=== PATIENT | male | born 1945 | race Asian ===

== ENCOUNTER 2019-06-08 10:03 | Emergency (ER) | payer OTHER, SELFPAY ==
[~2019-06-08] VITALS: Ht 170.2 cm; Wt 63.6 kg
[~2019-06-08 10:03] MED LIST: ASPI81TA40 PO; GEMF600T5 PO; GLIP5 PO; LISI-660 PO; METF-960 PO; PRAV10TA39 PO
[2019-06-08] MEDS ORDERED: SODIUM CHLORIDE 0.9% 1,000 ML IV ONE ×2 (10:15→11:00)
[2019-06-08 10:28] LABS: BASOPHILS % (AUTO) 0.5 % (0.0-2.0); EOSINOPHILS % (AUTO) 3.5 % (1.0-6.0); HEMATOCRIT 40.7 % (41-53); HEMOGLOBIN 13.9 g/dL (13.5-17.5); LYMPHOCYTES # (AUTO) 0.8 K/uL (1.0-4.8); LYMPHOCYTES % (AUTO) 12.8 % (22.0-44.0); MEAN CORPUSCULAR HEMOGLOBIN 30.5 pg (26.0-34.0); MEAN CORPUSCULAR HGB CONC 34.1 G/dL (31.0-37.0); MEAN CORPUSCULAR VOLUME 89 fL (80-100); MONOCYTES # (AUTO) 0.3 K/uL (0.1-1.0); MONOCYTES % (AUTO) 4.8 % (2.0-9.0); NEUTROPHILS % (AUTO) 78.4 % (40.0-70.0); PLATELET COUNT (AUTO) 221 K/uL (150-450); RED BLOOD CELL COUNT(AUTO) 4.55 MIL/uL (4.50-5.90); RED CELL DISTRIBUTION WIDTH 13.7 % (11.5-14.5)
[2019-06-08 10:45] LABS: APPEARANCE,URINE CLEAR (CLEAR); BILIRUBIN,URINE NEGATIVE (NEGATIVE); GLUCOSE, URINE (UA) >=1000 mg/dL (NEGATIVE); KETONES,URINE NEGATIVE (NEGATIVE); LEUKOCYTE ESTERASE ,URINE NEGATIVE (NEGATIVE); NITRATE,URINE NEGATIVE (NEGATIVE); OCCULT BLOOD,URINE NEGATIVE (NEGATIVE); PROTEIN,URINE NEGATIVE (NEGATIVE); UROBILINOGEN,URINE 0.2 mg/dL (<=1.0)
[2019-06-08 10:48] LABS: ALANINE AMINOTRANSFERASE 67 U/L (12-78); ALKALINE PHOSPHATASE 97 U/L (46-116); ANION GAP 11 mmol/L (8-16); ASPARTATE AMINOTRANSFERASE 27 U/L (15-37); BILIRUBIN,TOTAL 0.5 mg/dL (0.1-1.0); CALCIUM, TOTAL 9.4 mg/dL (8.8-10.5); CARBON DIOXIDE 27 mmol/L (22-29); CHLORIDE 96 mmol/L (98-107); CREATININE 1.25 mg/dL (0.60-1.30); GLOMERULAR FILTR. RATE CALC 56 mL/min (>60); POTASSIUM 4.3 mmol/L (3.5-5.1); SODIUM SERUM 134 mmol/L (136-145); TOTAL PROTEIN, SERUM 7.8 g/dL (6.4-8.2); UREA NITROGEN, BLOOD 14 mg/dL (7-18)
[2019-06-08 10:49] LABS: ACETONE,BLOOD NEGATIVE (NEGATIVE); GLUCOSE,RANDOM 450 mg/dL (70-110)
[2019-06-08 10:54] LABS: BACTERIA,URINE None Seen /HPF (None Seen); RBC,URINE None Seen /HPF (0-2); SQUAMOUS EPITHELIAL CELL,UR None Seen /LPF (None Seen); WBC,URINE None Seen /HPF (0-5)
[2019-06-08 12:50] VITALS: BP 182/96
[2019-06-08 13:06] LABS: GLUCOSE,POINT OF CARE 302 MG/DL (70-110)
== END 2019-06-08 13:21 | disposition home or self-care (01) ==
LOC: EMS 10:04
DX: E11.65 Type 2 diabetes mellitus with hyperglycemia (principal); Z79.4 Long term (current) use of insulin; Z79.82 Long term (current) use of aspirin; Z79.84 Long term (current) use of oral hypoglycemic drugs; Z79.899 Other long term (current) drug therapy
CPT/HCPCS: 36415; 80053; 81001; 82009; 82962; 85025; 96360; 96361; 99283; J7030

== ENCOUNTER 2024-06-19 01:53 | Emergency (ER) | payer MEDICARE, OTHER ==
[~2024-06-19] VITALS: Ht 152.4 cm; Wt 59.0 kg
[~2024-06-19 01:53] MED LIST changes: +GEMF-77 PO; -GEMF600T5 PO; -GLIP5 PO; +GLIP5TAB16 PO; -LISI-660 PO; +LISI-892 PO; +METF-1211 PO; -METF-960 PO
[2024-06-19 02:15] VITALS: TEMP 97.8
[2024-06-19] MEDS ORDERED: FINA-27 PO (02:31)
[2024-06-19] MEDS ORDERED: EMPA25TA3 PO (02:31)
[2024-06-19] MEDS ORDERED: INSLAN SQ (02:31)
[2024-06-19] MEDS ORDERED: POLY17PO47 PO (02:31)
[2024-06-19] MEDS ORDERED: MULT9LIQ7 PO (02:31)
[2024-06-19] MEDS ORDERED: METO25 PO (02:31)
[2024-06-19] MEDS ORDERED: TAMS0.4C94 PO (02:31)
[2024-06-19] MEDS ORDERED: ROSU20TA98 PO (02:31)
[2024-06-19] MEDS ORDERED: QUET100T PO (02:31)
[2024-06-19] MEDS ORDERED: MELA5TAB40 PO (02:31)
[2024-06-19] MEDS ORDERED: INSU100V SQ (02:31)
[2024-06-19] MEDS ORDERED: PANT-31 PO (02:31)
[2024-06-19] MEDS ORDERED: QUET200T PO (02:31)
[2024-06-19 02:32] LABS: COVID AG,FIA SOURCE NASAL SWAB
[2024-06-19 02:36] LABS: BASOPHILS % (AUTO) 0.4 % (0.0-2.0); EOSINOPHILS % (AUTO) 2.8 % (1.0-6.0); HEMOGLOBIN 9.3 g/dL (13.5-17.5); LYMPHOCYTES # (AUTO) 0.7 K/uL (1.0-4.8); LYMPHOCYTES % (AUTO) 10.7 % (22.0-44.0); MEAN CORPUSCULAR HEMOGLOBIN 29.4 pg (26.0-34.0); MEAN CORPUSCULAR VOLUME 89 fL (80-100); MONOCYTES # (AUTO) 0.4 K/uL (0.1-1.0); MONOCYTES % (AUTO) 5.9 % (2.0-9.0); NEUTROPHILS # (AUTO) 5.2 K/uL (1.8-7.7); NEUTROPHILS % (AUTO) 80.2 % (40.0-70.0); PLATELET COUNT (AUTO) 250 K/uL (150-450); RED BLOOD CELL COUNT(AUTO) 3.14 MIL/uL (4.50-5.90); WHITE BLOOD COUNT (AUTO) 6.5 K/uL (4.5-11.0)
[2024-06-19 02:47] LABS: SARS-COV2 (COVID) ANTIGEN,FIA Negative (Negative)
[2024-06-19 02:47] LABS: APPEARANCE,URINE HAZY (CLEAR); BILIRUBIN,URINE NEGATIVE (NEGATIVE); COLOR,URINE LIGHT ORANGE (YELLOW); GLUCOSE, URINE (UA) 300-500 mg/dL (NEGATIVE); KETONES,URINE NEGATIVE (NEGATIVE); LEUKOCYTE ESTERASE ,URINE MODERATE (NEGATIVE); NITRATE,URINE NEGATIVE (NEGATIVE); OCCULT BLOOD,URINE LARGE (NEGATIVE); PH,URINE 5.5 (5.0-8.0); PH,URINE DRUG SCREEN 5.5 (5.0-8.0); PROTEIN,URINE 30-70 mg/dL (NEGATIVE); SPECIFIC GRAVITIY, URINE 1.018 (1.003-1.030); UROBILINOGEN,URINE <=1.0 mg/dL (<=1.0)
[2024-06-19 02:49] LABS: ALCOHOL, URINE DRUG SCREEN NEGATIVE (NEGATIVE); AMPHET/METH SCREEN,URINE NEGATIVE (NEGATIVE); BARBITURATE SCREEN, URINE NEGATIVE (NEGATIVE); BENZODIAZEPINES SCREEN,URINE NEGATIVE (NEGATIVE); CANNABINOID SCREEN,URINE NEGATIVE (NEGATIVE); COCAINE SCREEN,URINE NEGATIVE (NEGATIVE); METHADONE SCREEN, URINE NEGATIVE (NEGATIVE); OPIATE SCREEN,URINE NEGATIVE (NEGATIVE); PHENCYCLIDINE SCREEN,URINE NEGATIVE (NEGATIVE)
[2024-06-19 02:51] LABS: PROTHROMBIN TIME 10.3 SEC (9.4-11.6)
[2024-06-19 02:53] LABS: ANION GAP 11 mmol/L (8-16); CARBON DIOXIDE 22 mmol/L (22-29); CHLORIDE 100 mmol/L (98-107); CREATININE 1.41 mg/dL (0.60-1.30); GLOMERULAR FILTR. RATE CALC 48 mL/min (>60); GLUCOSE,RANDOM 288 mg/dL (70-110); POTASSIUM 5.4 mmol/L (3.5-5.1); SODIUM SERUM 133 mmol/L (136-145); UREA NITROGEN, BLOOD 47 mg/dL (7-18)
[2024-06-19 02:54] LABS: TROPONIN I-HIGH SENSITIVITY 28 ng/L (<76)
[2024-06-19 02:55] LABS: BACTERIA,URINE None Seen /HPF (None Seen); RBC,URINE 51-100 /HPF (0-2); SQUAMOUS EPITHELIAL CELL,UR Few /LPF (None Seen)
[2024-06-19 03:04] LABS: ALCOHOL, BLOOD (SERUM) < 3 mg/dL (0-10)
[2024-06-19 03:05] LABS: B-TYPE NATRIURETIC PEPTIDE 46 pg/mL (0-100)
[2024-06-19] MEDS ORDERED: SODIUM CHLORIDE 0.9% 500 ML IV ONE (03:15)
[2024-06-19 03:17] LABS: ALANINE AMINOTRANSFERASE 118 U/L (12-78); ALBUMIN 3.2 g/dL (3.4-5.0); ALKALINE PHOSPHATASE 97 U/L (46-116); ASPARTATE AMINOTRANSFERASE 66 U/L (15-37); BILIRUBIN,TOTAL 0.2 mg/dL (0.1-1.0); CREATINE KINASE, TOTAL ONLY 103 U/L (39-308); TOTAL PROTEIN, SERUM 6.9 g/dL (6.4-8.2)
[2024-06-19 04:16] VITALS: BP 140/74; PULSE 96; RESP 18; O2SAT 98
[2024-06-19 12:56] LABS: GLUCOMETER DEV NAME(LOC) ERT.6; GLUCOSE,POINT OF CARE 290 MG/DL (70-110)
== END 2024-06-19 06:01 | disposition short-term general hospital (02) ==
LOC: EMS 01:53
DX: G93.40 Encephalopathy, unspecified (principal); R31.9 Hematuria, unspecified; E11.9 Type 2 diabetes mellitus without complications; I10 Essential (primary) hypertension; F03.911 Unspecified dementia, unspecified severity, with agitation; Z79.82 Long term (current) use of aspirin; Z20.822 Contact with and (suspected) exposure to COVID-19
CPT/HCPCS: 99285; 70450; 71045; 87426; 80053; 82550; 82962; 83880; 84484; 85025; 85610; 85730; 36415; 72125; 93005; 80307; 81001; G0480